=== PATIENT | male | born 1955 | race Caucasian/White ===

== ENCOUNTER 2017-09-23 14:09 | Day surgery (SDC) | payer BC ==
[~2017-09-23] VITALS: Ht 157.5 cm; Wt 53.5 kg
[2017-09-23 14:53] VITALS: Ht 157.5 cm; Wt 53.5 kg
[2017-09-23] MEDS ORDERED: NO DAILY MEDS (14:55)
[2017-09-23 15:22] VITALS: BP 123/60; PULSE 48; RESP 18
--- NOTE | 2017-09-23 15:55 | OPPN ---
Date/Time of Note Date/Time of Note DATE: 09/23/17 TIME: 15:54 Operative Report Preoperative Diagnosis Screening colonoscopy Postoperative Diagnosis Small polyp 3 mm polyp at 40 cm Operation/Procedure Performed Colonoscopy polyp removal Surgeon see signature line bilingual sales assistant None Anesthesia: moderate sedation (2 mg IV Versed 50 mcg of fentanyl total duration of moderate sedation 21 minutes) Estimated blood loss: none Transfusion Required none Specimen Colon biopsy 3 mm polyp at 40 cm Grafts/Implants none Complications none LOGAN SOMERS MD Sep 23, 2017 15:55
[2017-09-23] MEDS ORDERED: FENTAnyl 50 MCG/ML VIAL ONE (16:02)
[2017-09-23] MEDS ORDERED: MIDAZOLAM 1 MG/ML 2 ML INJ ONE (16:02)
[2017-09-23 16:30] VITALS: BP 117/55; PULSE 46
--- NOTE | 2017-09-24 08:59 | GILP ---
DATE OF PROCEDURE: PREOPERATIVE DIAGNOSIS: Screening colonoscopy. PROCEDURE DONE: Colonoscopy, biopsy, removal of 3 mm polyp at 40 cm level. Otherwise normal colono scopy. DESCRIPTION OF PROCEDURE: The patient was put in left lateral decubitus after obtaining informed co nsent, was sedated, monitored, oximetry, EKG, blood pressure. He had sinus bradycardia even before starting the procedure. Then 2 mg IV Versed and 50 mcg of fentanyl given. Rectal exam done, which was normal. Advanced Olympus video colonoscope all the way to cecum. Appen diceal opening and ileocecal valve were identified. Photography done. Cecum, ascending colon, farah sverse colon normal. Descending colon normal. Sigmoid colon at 40 cm, a 3-mm polyp was found. Thi s was photographed, completely taken out by cold biopsy forceps and sent to histopathology. Withdre w the scope back and the rest of the sigmoid colon, rectosigmoid and rectum normal including retrofl exion. PLAN: Will be to wait for biopsy report, followup in 3 to 4 weeks and I advised him to have a repea t colonoscopy in 3 years. Dictated By: LOGAN BONILLA Conf#: [id number] DID#: [id number] CC: Christopher Washington;*EndCC*
== END 2017-09-23 17:44 | disposition home or self-care (01) ==
LOC: GIL 14:09
PROVIDERS: ATTEND Internal Medicine
DX: Z12.11 Encounter for screening for malignant neoplasm of colon (principal); D12.5 Benign neoplasm of sigmoid colon
CPT/HCPCS: 45380; 88305; J2250; J3010; Z7610

== ENCOUNTER 2018-07-24 21:06 | Inpatient (IN) | END 2018-07-27 15:40 | disposition home or self-care (01) | DRG 310 ==